=== PATIENT | male | born 1985 | race Caucasian/White ===

== ENCOUNTER 2022-12-29 07:00 | Outpatient (RCR) | payer OTHER ==
[~2022-12-29 07:00] MED LIST: LEVAQUIN500 MG PO; ULTRAM50 MG PO
== END 2023-01-06 ==
LOC: PT 07:00
PROVIDERS: ATTEND Orthopaedic Surgery
DX: M25.562 Pain in left knee (principal); M25.561 Pain in right knee; S83.412A Sprain of medial collateral ligament of left knee, initial encounter; S83.411A Sprain of medial collateral ligament of right knee, initial encounter; S83.512A Sprain of anterior cruciate ligament of left knee, initial encounter; S83.511A Sprain of anterior cruciate ligament of right knee, initial encounter; S83.8X2A Sprain of other specified parts of left knee, initial encounter; S83.8X1A Sprain of other specified parts of right knee, initial encounter